=== PATIENT | female | born 1995 | race Caucasian/White ===

== ENCOUNTER 2023-12-25 10:50 | Outpatient (AMB) | payer OTHER, SELFPAY ==
--- NOTE | 2023-12-25 10:51 | MHC.OFFWIV ---
Intake Vital Signs 12/25/23 10:57 Height 5 ft 2 in Weight 250 lb BMI 45.7 BP 150/90 H Blood Pressure Location Lt brachial Position Sitting Pulse 96 Pulse Source Pulse Oximeter Temp 98.1 F Temp Source Temporal Artery Scan Pulse Oximetry (%) 99 Oxygen Delivery Method Room Air Intake Visit Reasons: SINGER AND UNLOADER ?UTI Intake Note: pt is here today for UTI started yesterday Patient Tobacco Use Status: Never used Tobacco Allergies No Known Allergies Allergy (Verified 12/25/23 10:59) Medication List - Last Reconciled 12/25/23 by Seth Callejas MD bupropion HCl XL 150 mg PO QAM naproxen 500 mg PO BID ondansetron HCl 4 mg PO DAILY semaglutide (weight loss) (Wegovy) mg subcut Do you need a note to return to daycare/school/sports/work: No HPI SINGER AND UNLOADER ?UTI HPI Details Patient is 28-year-old female came in today to be evaluated for possible bladder infection Patient says that symptoms started mid day yesterday with feeling of pressure suprapubic and frequency of urination Patient says that she has had UTI in the past and she can tell when it is coming on There is no fever no chills no back pain no nausea no vomiting She is traveling tomorrow to [place] I am treating her with nitrofurantoin 100 mg b.i.d. for 5 days Patient was instructed to push fluids. UA shows positive leuk esterase without any blood Patient is aware of elevated blood pressure, she tells me that it fluctuates and she is working on her blood pressure with the primary care. PFSH Social History Patient Tobacco Use Status: Never used Tobacco Review of Systems Const All systems reviewed & are unremarkable except as noted in HPI and below Physical Exam Vital Signs: Last Vital Signs Temp 98.1 F 12/25/23 10:57 Pulse 96 12/25/23 10:57 BP 150/90 H 12/25/23 10:57 Pulse Ox 99 12/25/23 10:57 Oxygen Delivery Method Room Air 12/25/23 10:57 BMI result Body Mass Index 45.7 Const General: no acute distress Orientation/consciousness: patient oriented x3 Eyes General: appearance normal, both eyes and all related structures Resp Effort & Inspection: normal respiratory effort and able to speak in complete sentences GI Other: Mild suprapubic discomfort with pressure General: Yes no CVA tenderness Back/Spine/Pelvis Back: no CVA tenderness Neuro General: patient oriented x3 Psych Mental Status: mental status grossly normal Results AMB Urinalysis, Automated UA Leukoctes 15 Mone/uL Last Edit by ALYSE Mccarty on 12/25/23 11:10 UA Nitrite Negative Last Edit by ALYSE Mccarty on 12/25/23 11:10 UA Urobilinogen 0.2 mg/dL Last Edit by ALYSE Mccarty on 12/25/23 11:10 UA Protein 15 mg/dL Last Edit by Adarsh Yee CCM on 12/25/23 11:10 UA pH 6.0 Last Edit by ALYSE Mccarty on 12/25/23 11:10 UA Blood 0 Carlito/uL Last Edit by ALYSE Mccarty on 12/25/23 11:10 UA Specific [place] 1.020 Last Edit by ALYSE Mccarty on 12/25/23 11:10 UA Ketone Positive Last Edit by ALYSE Mccarty on 12/25/23 11:10 UA Bilirubin 0 mg/dL Last Edit by ALYSE Mccarty on 12/25/23 11:10 UA Glucose 0 mg/dL Last Edit by ALYSE Mccarty on 12/25/23 11:10 Assessment & Plan Assessment & Plan (1) Acute cystitis without hematuria: Code(s): N30.00 - Acute cystitis without hematuria Plan Patient is 28-year-old female came in today to be evaluated for possible bladder infection Patient says that symptoms started mid day yesterday with feeling of pressure suprapubic and frequency of urination Patient says that she has had UTI in the past and she can tell when it is coming on There is no fever no chills no back pain no nausea no vomiting She is traveling tomorrow to [place] I am treating her with nitrofurantoin 100 mg b.i.d. for 5 days Patient was instructed to push fluids. UA shows positive leuk esterase without any blood Patient is aware of elevated blood pressure, she tells me that it fluctuates and she is working on her blood pressure with the primary care. Coding Level of Care Code New Pt Level 3 (01285) Diagnoses Acute cystitis without hematuria N30.00
[2023-12-25 10:57] VITALS: BP 150/90; PULSE 96; TEMP 36.7; O2SAT 99; BMI 45.7
== END 2023-12-25 11:50 | disposition home or self-care (01) ==
PROVIDERS: PCP Nurse Practitioner Family; Visit Provider Internal Medicine
DX: N30.00 Acute cystitis without hematuria (principal)
CPT/HCPCS: 81003; 99203

== ENCOUNTER 2025-01-27 07:34 | Outpatient (AMB) | payer OTHER, SELFPAY ==
[2025-01-27 07:34] VITALS: BP 145/98; PULSE 74; TEMP 36.2; O2SAT 98; BMI 47.3
--- NOTE | 2025-01-27 07:34 | AM.OFFWIN_ITS ---
Intake Vital Signs 01/27/25 07:34 Height 5 ft 2 in Weight 258 lb 6 oz BMI 47.3 BP 145/98 H Blood Pressure Location Lt brachial Position Sitting Pulse 74 Pulse Source Pulse Oximeter Temp 97.1 F Temp Source Oral Pulse Oximetry (%) 98 Oxygen Delivery Method Room Air Intake Visit Reasons: EP ? UTI Intake Note: Patient presents with urinary frequency and urgency times 2 days Patient Tobacco Use Status: Never used Tobacco [employer] Required: No Is last menstrual period known: Yes Last menstrual period: 01/25/25 Post menopausal: No Patient : No Allergies No Known Allergies Allergy (Verified 01/27/25 07:40) Do you need a note to return to daycare/school/sports/work: Yes HPI HPI Comments History of Present Illness Details History - The patient is a 29-year-old female pr esenting with urinary tract infection symptoms. - Symptoms began yesterday morning, incl uding frequent urination and slight discomfort. - No fever, low back pain, or history of kidney stones reported. - Slight burning sensation noted during urination. - Patient is currently menstruating with an IUD, making it difficult to assess for hematuria. Physical Exam General: Cooperative, healthy appearing, comfortable, no acute distress and well developed Orientation: Patient oriented x3 Limitations: No limitations Head: Normal to inspection Ears: Hearing grossly normal bilaterally Face and sinus: Normal facial exam Neck: Normal visual inspection and Yes full ROM Respiratory: Normal respiratory effort and able to speak in complete sentences. Skin: No rashes or lesions noted Neuro: Patient oriented x3 [facility] Social History Patient Tobacco Use Status: Never used Tobacco Patient : No Female Reproductive History Menstrual Date of last menstrual period: 01/25/25 Review of Systems Const All systems reviewed & are unremarkable except as noted in HPI and below Physical Exam Vital Signs: Last Vital Signs Temp 97.1 F 01/27/25 07:34 Pulse 74 01/27/25 07:34 BP 145/98 H 01/27/25 07:34 Pulse Ox 98 01/27/25 07:34 Oxygen Delivery Method Room Air 01/27/25 07:34 BMI result Body Mass Index 47.3 Assessment & Plan Assessment & Plan (1) Symptomatic urinary tract infection: Code(s): N39.0 - Urinary tract infection, site not specified Plan: Plan Patient was informed and verbally consented to the use of an ambient scribe for clinic note documentation during this visit. 1. Urinary Tract Infection (Uti) Symptoms - Prescribed Cefuroxime 250 mg every 12 hours for five days. - Urine culture ordered to confirm infection and ensure appropriate antibiotic coverage. - Patient advised to provide a urine sample at the lab for culture as she was unable to provide a sample while in the office. Orders: Orders Urine Culture Today N39.0 - Urinary tract infection, site not specified UA w Microscopic Today N39.0 - Urinary tract infection, site not specified Medications: New cefuroxime axetil 500 mg PO Q12H 10 tabs 0RF Coding Level of Care Code New Pt Level 3 (08923) Diagnoses Symptomatic urinary tract infection N39.0
--- OUTSIDE RECORDS SUMMARY | 2025-01-27 07:35 | XMS_ITS ---
Author Name [facility] Organization Unknown Care Team Organization Name Specialty Phone Email Start Date End Da te [facility] Milady Gonzalez DO Primary Care 11/12/202202/05
--- OUTSIDE RECORDS SUMMARY | 2025-01-27 07:35 | XMS_ITS | Patient Health Record ---
Author Organization [facility] Address [address] [place] [address] Care Team Providers Care [employer] Installer Name Role Phone KARYN MERT Unavailable [phone] Allergies No Known Allergies Reason For Referral No Information Medications Medication SIG (Take, Route, Fr equency, Duration) Notes Start Date End Date Status FLUoxetine HCl 10 MG TAKE 1 TABLET BY MO UTH EVERY DAY Oral; Duration: 30 Days Acti ve Probiotic 250 MG as directed Orally Active Problems Problem Type SNOMED Code ICD Code Onset Dates Problem Status W/U Status Risk Notes Problem Prediabetes (332106088) Prediabetes (R73.03) Active confirmed Problem Anxiety (23146213) Anxiety (F41.9) Active confirmed Problem Body mass index 40+ - severely obese (049668804) BMI 45.0-49.9, adult (Z68.42) Active confirmed Problem Screening for cardiovascular system disease (129430240) Screening for cardiovascular condition (Z13.6) Active confirmed Problem Morbid obesity (943056777) Obesity, Class III, BMI 40-49.9 (morbid obesity) (E66.01) Active confirmed Problem Obesity (650315152) Obesity (E66.9) Active confirmed Vital Signs Heart Rate 80 /min 12/21/2024 Oximetry 99 % 12/21/2024 Blood pressure diastolic 86 mm Hg 12/21/2024 Height 61 in 12/21/2024 Blood pressure systolic 134 mm Hg 12/21/2024 Weight 259.4 lbs 12/21/2024 BMI 49.01 kg/m2 12/21/2024 Encounters Encounter Location Date Provider Diagnosis [facility] [address] [place] [address] 04/23/2024 MERT BOSS BMI 45.0-49.9, adult Z68.42 ; Obesity, Class III, BMI 40-49.9 (morbid obesity) E66.01 and Prediabetes R73.[address] [facility] [address] [place], [place] 08/04/2024 MERT BOSS BMI 45.0-49.9, adult Z68.42 ; Obesity, Class III, BMI 40-49.9 (morbid obesity) E66.01 and Prediabetes R73.[address] [facility] [address] [place], [place] 12/21/2024 MERT BOSS BMI 45.0-49.9, adult Z68.42 ; Obesity, Class III, BMI 40-49.9 (morbid obesity) E66.01 ; Prediabetes R73.03 and Encounter for examination of blood pressure without abnormal findings Z01.[address] [facility] [address] [place] [address] 04/22/2024 MERT BOSS [facility] [address] [address] 08/04/2024 MERT BOSS [facility] [address] [address] 08/11/2024 MERT BOSS Obesity, Class III, BMI 40-49.9 (morbid obesity) E66.01 [facility] [address] [address] 08/12/2024 MERT BOSS Obesity, Class III, BMI 40-49.9 (morbid obesity) E66.[address] [facility] [address] [place], [place] 08/13/2024 MERT BOSS [facility] [address] [place], [place] 08/19/2024 MERT BOSS [facility] [address] [place], [place] 06/01/2024 MERT BOSS [facility] [address] [place], [place] 06/01/2024 MERT BOSS [facility] [address] [place], [place] 06/10/2024 MERT BOSS [facility] [address] [place] [address] 06/10/2024 MERT FARMERNER [facility] [address] [facility] [place], [place] [address] 07/14/20[address] MERT [address]OSS [facility] [address] [facility] [place] [address] 07/14/2024 MERT KARYN [facility] [address] [place] [place], [place] [address] 09/28/2024 MERT FARMERNER [facility] [address] [facility] [place] [address] 09/28/2024 MERT BOSS Assessments Encounter Date Diagnosis (ICD Code) Assessment Notes Treatment Notes Treatment Clinical Notes Section Notes 04/23/2024 BMI 45.0-49.9, adult (ICD-10 - Z68.42) #Weight management 09/18/23: Patient established weight management care here in the beginning of June and was prescribed phentermine. Patient reports she did not start the medication and wanted to try lifestyle modifications instead. Has made some lifestyle changes such as increasing her step, eliminated alcohol and restaurant eating, as well as increasing protein intake. Discussed with patient to promote weight loss she needs to be eating less than 1400 calories a day, eating a well balanced diet of protein, vegetables, fruits, whole grains and eliminating things like pasta, white bread and rice. Discussed eliminating sugar and alcohol while trying to lose weight. For activity, advised patient to increase steps with a goal of 10,000 steps, at least 5 days a week. Plan to continue lifestyle modifications as described above in addition to prescribing a low dose of phentermine 15 mg tab PO once daily for the next month. Discussed phentermine works by causing appetite supression. Plan to take phentermine until next follow up in 1 month to monitor weight loss. 10/16/23: 10/16/23: Weight 255.3, BMI 48.23. Patient congratulated on effort, continue to lose slow, steady weight. Taking phentermine 30 mg with compliance, no side effects. Just had a refill has been taking x 1 week. Exercising resistance training 2 times per week, cardio 3 times per week. Pleased progress overall. May consider switching over to GLP-1, patient is getting at the end of the year, just waiting starting in January so we will plan accordingly. 11/20/2023: Weight 254.4, BMI 48.06. Patient has plateaued since last visit. Taking phentermine 30 mg. Will discontinue medication as she is not noticing much effect, switch over to semaglutide. Start semaglutide 0.25 mg in office, but submit for Wegovy 2.5 mg. Discussed prior authorization process, and coverage. Patient understanding. Continue exercising , And focusing on high-protein. 12/18/2023: Weight 251.4, BMI 47.5. Patient congratulated on effort. Body scan reveals 1 pound of fat mass loss, 2 pounds of fat free mass loss, and muscle mass remaining the same. Patient states her nutrition fluctuates and the weekends are especially difficult to make healthy food choices. Reports noticing a little appetite suppression on the Wegovy 0.25mg and reports mild nausea. Patient is interested in increasing dose to Wegovy 0.5mg. Patient will receive semaglutide 0.5mg in office today and patient will continue on Wegovy 0.5mg at home if able to fill rx.. Patient will f/u in 4 weeks. 01/22/2024: Weight 249, BMI 47.1. Patient congratulated and effort, losing slow, steady weight. Taking Wegovy 0.5 mg but will increase to 1 mg. Just joint [employer] tracks, to implement more consistent resistance training. Body scan reviewed overall unchanged from last visit. Patient is motivated.Continue with Wegovy 1 mg, follow-up in March. 04/23/2024: Weight 239, BMI 45.19. Patient congratulated on effort. Extensively educated on lifestyle modifications. Has been walking more, but plans implement more resistance training. Just got , congratulated. Is going to [place] next week for her honeymoon. Insurance is switching as of May 08. Will send refill of Wegovy 1 mg, but will have to submit a new prior authorization with new insurance which is [employer]. She is aware I cannot guarantee coverage of medication. # Being worked up for uterine fibroids with ELECTROTHERAPIST. Getting an IUD in place. Time spent with patient 30 minutes greater than 50% on patient occasion and care coronation. Follow-up in 6 weeks, sooner as needed. All quetsions answered to patients satisfaction. Patient verbalized understanding of diagnosis and treatments explained. To call sooner prior to next visit it any questions/concerns arise. Case discussed with collaborating physician Lizz Mejia who reviewed the assessment and plan. Chart, medications, labs, vital signs reviewed. Dictation was accomplished with the use of [employer] voice recognition software, prone to medical misidentifications and grammatical errors. This is unintentional and the practitioner does try to identify and correct these, but some could still be present. Please do not hesitate to contact practitioner for clarification. 08/04/2024 BMI 45.0-49.9, adult (ICD-10 - Z68.42) #Weight management 09/18/23: Patient established weight management care here in the beginning of June and was prescribed phentermine. Patient reports she did not start the medication and wanted to try lifestyle modifications instead. Has made some lifestyle changes such as increasing her step, eliminated alcohol and restaurant eating, as well as increasing protein intake. Discussed with patient to promote weight loss she needs to be eating less than 1400 calories a day, eating a well balanced diet of protein, vegetables, fruits, whole grains and eliminating things like pasta, white bread and rice. Discussed eliminating sugar and alcohol while trying to lose weight. For activity, advised patient to increase steps with a goal of 10,000 steps, at least 5 days a week. Plan to continue lifestyle modifications as described above in addition to prescribing a low dose of phentermine 15 mg tab PO once daily for the next month. Discussed phentermine works by causing appetite supression. Plan to take phentermine until next follow up in 1 month to monitor weight loss. 10/16/23: 10/16/23: Weight 255.3, BMI 48.23. Patient congratulated on effort, continue to lose slow, steady weight. Taking phentermine 30 mg with compliance, no side effects. Just had a refill has been taking x 1 week. Exercising resistance training 2 times per week, cardio 3 times per week. Pleased progress overall. May consider switching over to GLP-1, patient is getting at the end of the year, just waiting starting in January so we will plan accordingly. 11/20/2023: Weight 254.4, BMI 48.06. Patient has plateaued since last visit. Taking phentermine 30 mg. Will discontinue medication as she is not noticing much effect, switch over to semaglutide. Start semaglutide 0.25 mg in office, but submit for Wegovy 2.5 mg. Discussed prior authorization process, and coverage. Patient understanding. Continue exercising , And focusing on high-protein. 12/18/2023: Weight 251.4, BMI 47.5. Patient congratulated on effort. Body scan reveals 1 pound of fat mass loss, 2 pounds of fat free mass loss, and muscle mass remaining the same. Patient states her nutrition fluctuates and the weekends are especially difficult to make healthy food choices. Reports noticing a little appetite suppression on the Wegovy 0.25mg and reports mild nausea. Patient is interested in increasing dose to Wegovy 0.5mg. Patient will receive semaglutide 0.5mg in office today and patient will continue on Wegovy 0.5mg at home if able to fill rx.. Patient will f/u in 4 weeks. 01/22/2024: Weight 249, BMI 47.1. Patient congratulated and effort, losing slow, steady weight. Taking Wegovy 0.5 mg but will increase to 1 mg. Just [employer] tracks, to implement more consistent resistance training. Body scan reviewed overall unchanged from last visit. Patient is motivated.Continue with Wegovy 1 mg, follow-up in March. 04/23/2024: Weight 239, BMI 45.19. Patient congratulated on effort. Extensively educated on lifestyle modifications. Has been walking more, but plans implement more resistance training. Just got , congratulated. Is going to [place] next week for her honeymoon. Insurance is switching as of May 08. Will send refill of Wegovy 1 mg, but will have to submit a new prior authorization with new insurance which is [employer]. She is aware I cannot guarantee coverage of medication. 08/04/2024: Weight 251, BMI 47. Patient has gained weight since last visit. Stopped Wegovy because she was having a difficult time with focusing on work and has not been on any medication since May. Interested in reestablishing and reinitiating medication. Discussed Wegovy versus Zepbound, patient would prefer to trial Wegovy. Will start 0.25 mg, discussed proper use and side effects. Did discuss the importance of lifestyle modifications in conjunction with weight loss medications. Patient does have a goal of next year, is aware she cannot be on any weight loss medications while . # Being worked up for uterine fibroids with ELECTROTHERAPIST. Getting an IUD in place. # Anxiety: Following with her PCP, trying to establish with therapy/psychiatry. Time spent with patient 30 minutes greater than 50% on patient occasion and care coronation. Follow-up in 4 weeks, sooner as needed. All quetsions answered to patients satisfaction. Patient verbalized understanding of diagnosis and treatments explained. To call sooner prior to next visit it any questions/concerns arise. Case discussed with collaborating physician Lizz Mejia who reviewed the assessment and plan. Chart, medications, labs, vital signs reviewed. Dictation was accomplished with the use of [employer] voice recognition software, prone to medical misidentifications and grammatical errors. This is unintentional and the practitioner does try to identify and correct these, but some could still be present. Please do not hesitate to contact practitioner for clarification. 08/11/2024 Obesity, Class III, BMI 40-49.9 (morbid obesity) (ICD-10 - E66.01) 08/12/2024 Obesity, Class III, BMI 40-49.9 (morbid obesity) (ICD-10 - E66.01) 12/21/2024 BMI 45.0-49.9, adult (ICD-10 - Z68.42) #Weight management 09/18/23: Patient established weight management care here in the beginning of June and was prescribed phentermine. Patient reports she did not start the medication and wanted to try lifestyle modifications instead. Has made some lifestyle changes such as increasing her step, eliminated alcohol and restaurant eating, as well as increasing protein intake. Discussed with patient to promote weight loss she needs to be eating less than 1400 calories a day, eating a well balanced diet of protein, vegetables, fruits, whole grains and eliminating things like pasta, white bread and rice. Discussed eliminating sugar and alcohol while trying to lose weight. For activity, advised patient to increase steps with a goal of 10,000 steps, at least 5 days a week. Plan to continue lifestyle modifications as described above in addition to prescribing a low dose of phentermine 15 mg tab PO once daily for the next month. Discussed phentermine works by causing appetite supression. Plan to take phentermine until next follow up in 1 month to monitor weight loss. 10/16/23: 10/16/23: Weight 255.3, BMI 48.23. Patient congratulated on effort, continue to lose slow, steady weight. Taking phentermine 30 mg with compliance, no side effects. Just had a refill has been taking x 1 week. Exercising resistance training 2 times per week, cardio 3 times per week. Pleased progress overall. May consider switching over to GLP-1, patient is getting at the end of the year, just waiting starting in January so we will plan accordingly. 11/20/2023: Weight 254.4, BMI 48.06. Patient has plateaued since last visit. Taking phentermine 30 mg. Will discontinue medication as she is not noticing much effect, switch over to semaglutide. Start semaglutide 0.25 mg in office, but submit for Wegovy 2.5 mg. Discussed prior authorization process, and coverage. Patient understanding. Continue exercising , And focusing on high-protein. 12/18/2023: Weight 251.4, BMI 47.5. Patient congratulated on effort. Body scan reveals 1 pound of fat mass loss, 2 pounds of fat free mass loss, and muscle mass remaining the same. Patient states her nutrition fluctuates and the weekends are especially difficult to make healthy food choices. Reports noticing a little appetite suppression on the Wegovy 0.25mg and reports mild nausea. Patient is interested in increasing dose to Wegovy 0.5mg. Patient will receive semaglutide 0.5mg in office today and patient will continue on Wegovy 0.5mg at home if able to fill rx.. Patient will f/u in 4 weeks. 01/22/2024: Weight 249, BMI 47.1. Patient congratulated and effort, losing slow, steady weight. Taking Wegovy 0.5 mg but will increase to 1 mg. Just joint [employer] tracks, to implement more consistent resistance training. Body scan reviewed overall unchanged from last visit. Patient is motivated.Continue with Wegovy 1 mg, follow-up in March. 04/23/2024: Weight 239, BMI 45.19. Patient congratulated on effort. Extensively educated on lifestyle modifications. Has been walking more, but plans implement more resistance training. Just got , congratulated. Is going to [place] next week for her honeymoon. Insurance is switching as of May 08. Will send refill of Wegovy 1 mg, but will have to submit a new prior authorization with new insurance which is [employer]. She is aware I cannot guarantee coverage of medication. 08/04/2024: Weight 251, BMI 47. Patient has gained weight since last visit. Stopped Wegovy because she was having a difficult time with focusing on work and has not been on any medication since May. Interested in reestablishing and reinitiating medication. Discussed Wegovy versus Zepbound, patient would prefer to trial Wegovy. Will start 0.25 mg, discussed proper use and side effects. Did discuss the importance of lifestyle modifications in conjunction with weight loss medications. Patient does have a goal of next year, is aware she cannot be on any weight loss medications while . 12/21/2024: Weight 259, BMI 49. Patient was hoping to reinitiate Wegovy in office, although discussed that we do not offer compounded options in office anymore. Did discuss other alternative options such as compounded tirzepatide, [id number] Wegovy, or Zepbound. Patient's insurance does cover the medication she does has a $1300 cost monthly. She states that she is going to go home and discuss with her . Wants to look into HERS. Will follow-up in 4 weeks. # Being worked up for uterine fibroids with ELECTROTHERAPIST. Getting an IUD in place. # Anxiety:On fluoxetine 10 mg, feeling well 9 prediabetes: A1c 5.13 Nov 2024. Discussed lifestyle, will benefit from weight loss GLP-1, does not qualify for diabetic GLP-1. # Elevated liver enzymes: Discussed lifestyle Time spent with patient 30 minutes greater than 50% on patient occasion and care coronation. Follow-up in 4 weeks, sooner as needed. All quetsions answered to patients satisfaction. Patient verbalized understanding of diagnosis and treatments explained. To call sooner prior to next visit it any questions/concerns arise. Case discussed with collaborating physician Lizz Mejia who reviewed the assessment and plan. Chart, medications, labs, vital signs reviewed. Dictation was accomplished with the use of [employer] voice recognition software, prone to medical misidentifications and grammatical errors. This is unintentional and the practitioner does try to identify and correct these, but some could still be present. Please do not hesitate to contact practitioner for clarification. 12/21/2024 Obesity, Class III, BMI 40-49.9 (morbid obesity) (ICD-10 - E66.01) #Weight management 09/18/23: Patient established weight management care here in the beginning of June and was prescribed phentermine. Patient reports she did not start the medication and wanted to try lifestyle modifications instead. Has made some lifestyle changes such as increasing her step, eliminated alcohol and restaurant eating, as well as increasing protein intake. Discussed with patient to promote weight loss she needs to be eating less than 1400 calories a day, eating a well balanced diet of protein, vegetables, fruits, whole grains and eliminating things like pasta, white bread and rice. Discussed eliminating sugar and alcohol while trying to lose weight. For activity, advised patient to increase steps with a goal of 10,000 steps, at least 5 days a week. Plan to continue lifestyle modifications as described above in addition to prescribing a low dose of phentermine 15 mg tab PO once daily for the next month. Discussed phentermine works by causing appetite supression. Plan to take phentermine until next follow up in 1 month to monitor weight loss. 10/16/23: 10/16/23: Weight 255.3, BMI 48.23. Patient congratulated on effort, continue to lose slow, steady weight. Taking phentermine 30 mg with compliance, no side effects. Just had a refill has been taking x 1 week. Exercising resistance training 2 times per week, cardio 3 times per week. Pleased progress overall. May consider switching over to GLP-1, patient is getting at the end of the year, just waiting starting in January so we will plan accordingly. 11/20/2023: Weight 254.4, BMI 48.06. Patient has plateaued since last visit. Taking phentermine 30 mg. Will discontinue medication as she is not noticing much effect, switch over to semaglutide. Start semaglutide 0.25 mg in office, but submit for Wegovy 2.5 mg. Discussed prior authorization process, and coverage. Patient understanding. Continue exercising , And focusing on high-protein. 12/18/2023: Weight 251.4, BMI 47.5. Patient congratulated on effort. Body scan reveals 1 pound of fat mass loss, 2 pounds of fat free mass loss, and muscle mass remaining the same. Patient states her nutrition fluctuates and the weekends are especially difficult to make healthy food choices. Reports noticing a little appetite suppression on the Wegovy 0.25mg and reports mild nausea. Patient is interested in increasing dose to Wegovy 0.5mg. Patient will receive semaglutide 0.5mg in office today and patient will continue on Wegovy 0.5mg at home if able to fill rx.. Patient will f/u in 4 weeks. 01/22/2024: Weight 249, BMI 47.1. Patient congratulated and effort, losing slow, steady weight. Taking Wegovy 0.5 mg but will increase to 1 mg. Just joint [employer] tracks, to implement more consistent resistance training. Body scan reviewed overall unchanged from last visit. Patient is motivated.Continue with Wegovy 1 mg, follow-up in March. 04/23/2024: Weight 239, BMI 45.19. Patient congratulated on effort. Extensively educated on lifestyle modifications. Has been walking more, but plans implement more resistance training. Just got , congratulated. Is going to [place] next week for her honeymoon. Insurance is switching as of May 08. Will send refill of Wegovy 1 mg, but will have to submit a new prior authorization with new insurance which is [employer]. She is aware I cannot guarantee coverage of medication. 08/04/2024: Weight 251, BMI 47. Patient has gained weight since last visit. Stopped Wegovy because she was having a difficult time with focusing on work and has not been on any medication since May. Interested in reestablishing and reinitiating medication. Discussed Wegovy versus Zepbound, patient would prefer to trial Wegovy. Will start 0.25 mg, discussed proper use and side effects. Did discuss the importance of lifestyle modifications in conjunction with weight loss medications. Patient does have a goal of next year, is aware she cannot be on any weight loss medications while . 12/21/2024: Weight 259, BMI 49. Patient was hoping to reinitiate Wegovy in office, although discussed that we do not offer compounded options in office anymore. Did discuss other alternative options such as compounded tirzepatide, [id number]-uh-bloraa Wegovy, or Zepbound. Patient's insurance does cover the medication she does has a $1300 cost monthly. She states that she is going to go home and discuss with her . Wants to look into HERS. Will follow-up in 4 weeks. # Being worked up for uterine fibroids with ELECTROTHERAPIST. Getting an IUD in place. # Anxiety:On fluoxetine 10 mg, feeling well 9 prediabetes: A1c 5.13 Nov 2024. Discussed lifestyle, will benefit from weight loss GLP-1, does not qualify for diabetic GLP-1. # Elevated liver enzymes: Discussed lifestyle Time spent with patient 30 minutes greater than 50% on patient occasion and care coronation. Follow-up in 4 weeks, sooner as needed. All quetsions answered to patients satisfaction. Patient verbalized understanding of diagnosis and treatments explained. To call sooner prior to next visit it any questions/concerns arise. Case discussed with collaborating physician Lizz Mejia who reviewed the assessment and plan. Chart, medications, labs, vital signs reviewed. Dictation was accomplished with the use of [employer] voice recognition software, prone to medical misidentifications and grammatical errors. This is unintentional and the practitioner does try to identify and correct these, but some could still be present. Please do not hesitate to contact practitioner for clarification. 12/21/2024 Prediabetes (ICD-10 - R73.03) #Weight management 09/18/23: Patient established weight management care here in the beginning of June and was prescribed phentermine. Patient reports she did not start the medication and wanted to try lifestyle modifications instead. Has made some lifestyle changes such as increasing her step, eliminated alcohol and restaurant eating, as well as increasing protein intake. Discussed with patient to promote weight loss she needs to be eating less than 1400 calories a day, eating a well balanced diet of protein, vegetables, fruits, whole grains and eliminating things like pasta, white bread and rice. Discussed eliminating sugar and alcohol while trying to lose weight. For activity, advised patient to increase steps with a goal of 10,000 steps, at least 5 days a week. Plan to continue lifestyle modifications as described above in addition to prescribing a low dose of phentermine 15 mg tab PO once daily for the next month. Discussed phentermine works by causing appetite supression. Plan to take phentermine until next follow up in 1 month to monitor weight loss. 10/16/23: 10/16/23: Weight 255.3, BMI 48.23. Patient congratulated on effort, continue to lose slow, steady weight. Taking phentermine 30 mg with compliance, no side effects. Just had a refill has been taking x 1 week. Exercising resistance training 2 times per week, cardio 3 times per week. Pleased progress overall. May consider switching over to GLP-1, patient is getting at the end of the year, just waiting starting in January so we will plan accordingly. 11/20/2023: Weight 254.4, BMI 48.06. Patient has plateaued since last visit. Taking phentermine 30 mg. Will discontinue medication as she is not noticing much effect, switch over to semaglutide. Start semaglutide 0.25 mg in office, but submit for Wegovy 2.5 mg. Discussed prior authorization process, and coverage. Patient understanding. Continue exercising , And focusing on high-protein. 12/18/2023: Weight 251.4, BMI 47.5. Patient congratulated on effort. Body scan reveals 1 pound of fat mass loss, 2 pounds of fat free mass loss, and muscle mass remaining the same. Patient states her nutrition fluctuates and the weekends are especially difficult to make healthy food choices. Reports noticing a little appetite suppression on the Wegovy 0.25mg and reports mild nausea. Patient is interested in increasing dose to Wegovy 0.5mg. Patient will receive semaglutide 0.5mg in office today and patient will continue on Wegovy 0.5mg at home if able to fill rx.. Patient will f/u in 4 weeks. 01/22/2024: Weight 249, BMI 47.1. Patient congratulated and effort, losing slow, steady weight. Taking Wegovy 0.5 mg but will increase to 1 mg. Just joint health tracks, to implement more consistent resistance training. Body scan reviewed overall unchanged from last visit. Patient is motivated.Continue with Wegovy 1 mg, follow-up in March. 04/23/2024: Weight 239, BMI 45.19. Patient congratulated on effort. Extensively educated on lifestyle modifications. Has been walking more, but plans implement more resistance training. Just got , congratulated. Is going to [place] next week for her honeymoon. Insurance is switching as of May 08. Will send refill of Wegovy 1 mg, but will have to submit a new prior authorization with new insurance which is [employer]. She is aware I cannot guarantee coverage of medication. 08/04/2024: Weight 251, BMI 47. Patient has gained weight since last visit. Stopped Wegovy because she was having a difficult time with focusing on work and has not been on any medication since May. Interested in reestablishing and reinitiating medication. Discussed Wegovy versus Zepbound, patient would prefer to trial Wegovy. Will start 0.25 mg, discussed proper use and side effects. Did discuss the importance of lifestyle modifications in conjunction with weight loss medications. Patient does have a goal of next year, is aware she cannot be on any weight loss medications while . 12/21/2024: Weight 259, BMI 49. Patient was hoping to reinitiate Wegovy in office, although discussed that we do not offer compounded options in office anymore. Did discuss other alternative options such as compounded tirzepatide, [id number] Wegovy, or Zepbound. Patient's insurance does cover the medication she does has a $1300 cost monthly. She states that she is going to go home and discuss with her . Wants to look into HERS. Will follow-up in 4 weeks. # Being worked up for uterine fibroids with ELECTROTHERAPIST. Getting an IUD in place. # Anxiety:On fluoxetine 10 mg, feeling well 9 prediabetes: A1c 5.13 Nov 2024. Discussed lifestyle, will benefit from weight loss GLP-1, does not qualify for diabetic GLP-1. # Elevated liver enzymes: Discussed lifestyle Time spent with patient 30 minutes greater than 50% on patient occasion and care coronation. Follow-up in 4 weeks, sooner as needed. All quetsions answered to patients satisfaction. Patient verbalized understanding of diagnosis and treatments explained. To call sooner prior to next visit it any questions/concerns arise. Case discussed with collaborating physician Lizz Mejia who reviewed the assessment and plan. Chart, medications, labs, vital signs reviewed. Dictation was accomplished with the use of [employer] voice recognition software, prone to medical misidentifications and grammatical errors. This is unintentional and the practitioner does try to identify and correct these, but some could still be present. Please do not hesitate to contact practitioner for clarification. 08/04/2024 Obesity, Class III, BMI 40-49.9 (morbid obesity) (ICD-10 - E66.01) #Weight management 09/18/23: Patient established weight management care here in the beginning of June and was prescribed phentermine. Patient reports she did not start the medication and wanted to try lifestyle modifications instead. Has made some lifestyle changes such as increasing her step, eliminated alcohol and restaurant eating, as well as increasing protein intake. Discussed with patient to promote weight loss she needs to be eating less than 1400 calories a day, eating a well balanced diet of protein, vegetables, fruits, whole grains and eliminating things like pasta, white bread and rice. Discussed eliminating sugar and alcohol while trying to lose weight. For activity, advised patient to increase steps with a goal of 10,000 steps, at least 5 days a week. Plan to continue lifestyle modifications as described above in addition to prescribing a low dose of phentermine 15 mg tab PO once daily for the next month. Discussed phentermine works by causing appetite supression. Plan to take phentermine until next follow up in 1 month to monitor weight loss. 10/16/23: 10/16/23: Weight 255.3, BMI 48.23. Patient congratulated on effort, continue to lose slow, steady weight. Taking phentermine 30 mg with compliance, no side effects. Just had a refill has been taking x 1 week. Exercising resistance training 2 times per week, cardio 3 times per week. Pleased progress overall. May consider switching over to GLP-1, patient is getting at the end of the year, just waiting starting in January so we will plan accordingly. 11/20/2023: Weight 254.4, BMI 48.06. Patient has plateaued since last visit. Taking phentermine 30 mg. Will discontinue medication as she is not noticing much effect, switch over to semaglutide. Start semaglutide 0.25 mg in office, but submit for Wegovy 2.5 mg. Discussed prior authorization process, and coverage. Patient understanding. Continue exercising , And focusing on high-protein. 12/18/2023: Weight 251.4, BMI 47.5. Patient congratulated on effort. Body scan reveals 1 pound of fat mass loss, 2 pounds of fat free mass loss, and muscle mass remaining the same. Patient states her nutrition fluctuates and the weekends are especially difficult to make healthy food choices. Reports noticing a little appetite suppression on the Wegovy 0.25mg and reports mild nausea. Patient is interested in increasing dose to Wegovy 0.5mg. Patient will receive semaglutide 0.5mg in office today and patient will continue on Wegovy 0.5mg at home if able to fill rx.. Patient will f/u in 4 weeks. 01/22/2024: Weight 249, BMI 47.1. Patient congratulated and effort, losing slow, steady weight. Taking Wegovy 0.5 mg but will increase to 1 mg. Just joint [employer] tracks, to implement more consistent resistance training. Body scan reviewed overall unchanged from last visit. Patient is motivated.Continue with Wegovy 1 mg, follow-up in March. 04/23/2024: Weight 239, BMI 45.19. Patient congratulated on effort. Extensively educated on lifestyle modifications. Has been walking more, but plans implement more resistance training. Just got , congratulated. Is going to [place] next week for her honeymoon. Insurance is switching as of May 08. Will send refill of Wegovy 1 mg, but will have to submit a new prior authorization with new insurance which is [employer]. She is aware I cannot guarantee coverage of medication. 08/04/2024: Weight 251, BMI 47. Patient has gained weight since last visit. Stopped Wegovy because she was having a difficult time with focusing on work and has not been on any medication since May. Interested in reestablishing and reinitiating medication. Discussed Wegovy versus Zepbound, patient would prefer to trial Wegovy. Will start 0.25 mg, discussed proper use and side effects. Did discuss the importance of lifestyle modifications in conjunction with weight loss medications. Patient does have a goal of next year, is aware she cannot be on any weight loss medications while . # Being worked up for uterine fibroids with ELECTROTHERAPIST. Getting an IUD in place. # Anxiety: Following with her PCP, trying to establish with therapy/psychiatry. Time spent with patient 30 minutes greater than 50% on patient occasion and care coronation. Follow-up in 4 weeks, sooner as needed. All quetsions answered to patients satisfaction. Patient verbalized understanding of diagnosis and treatments explained. To call sooner prior to next visit it any questions/concerns arise. Case discussed with collaborating physician Lizz Mejia who reviewed the assessment and plan. Chart, medications, labs, vital signs reviewed. Dictation was accomplished with the use of [employer] voice recognition software, prone to medical misidentifications and grammatical errors. This is unintentional and the practitioner does try to identify and correct these, but some could still be present. Please do not hesitate to contact practitioner for clarification. 04/23/2024 Obesity, Class III, BMI 40-49.9 (morbid obesity) (ICD-10 - E66.01) #Weight management 09/18/23: Patient established weight management care here in the beginning of June and was prescribed phentermine. Patient reports she did not start the medication and wanted to try lifestyle modifications instead. Has made some lifestyle changes such as increasing her step, eliminated alcohol and restaurant eating, as well as increasing protein intake. Discussed with patient to promote weight loss she needs to be eating less than 1400 calories a day, eating a well balanced diet of protein, vegetables, fruits, whole grains and eliminating things like pasta, white bread and rice. Discussed eliminating sugar and alcohol while trying to lose weight. For activity, advised patient to increase steps with a goal of 10,000 steps, at least 5 days a week. Plan to continue lifestyle modifications as described above in addition to prescribing a low dose of phentermine 15 mg tab PO once daily for the next month. Discussed phentermine works by causing appetite supression. Plan to take phentermine until next follow up in 1 month to monitor weight loss. 10/16/23: 10/16/23: Weight 255.3, BMI 48.23. Patient congratulated on effort, continue to lose slow, steady weight. Taking phentermine 30 mg with compliance, no side effects. Just had a refill has been taking x 1 week. Exercising resistance training 2 times per week, cardio 3 times per week. Pleased progress overall. May consider switching over to GLP-1, patient is getting at the end of the year, just waiting starting in January so we will plan accordingly. 11/20/2023: Weight 254.4, BMI 48.06. Patient has plateaued since last visit. Taking phentermine 30 mg. Will discontinue medication as she is not noticing much effect, switch over to semaglutide. Start semaglutide 0.25 mg in office, but submit for Wegovy 2.5 mg. Discussed prior authorization process, and coverage. Patient understanding. Continue exercising , And focusing on high-protein. 12/18/2023: Weight 251.4, BMI 47.5. Patient congratulated on effort. Body scan reveals 1 pound of fat mass loss, 2 pounds of fat free mass loss, and muscle mass remaining the same. Patient states her nutrition fluctuates and the weekends are especially difficult to make healthy food choices. Reports noticing a little appetite suppression on the Wegovy 0.25mg and reports mild nausea. Patient is interested in increasing dose to Wegovy 0.5mg. Patient will receive semaglutide 0.5mg in office today and patient will continue on Wegovy 0.5mg at home if able to fill rx.. Patient will f/u in 4 weeks. 01/22/2024: Weight 249, BMI 47.1. Patient congratulated and effort, losing slow, steady weight. Taking Wegovy 0.5 mg but will increase to 1 mg. Just joint [employer] tracks, to implement more consistent resistance training. Body scan reviewed overall unchanged from last visit. Patient is motivated.Continue with Wegovy 1 mg, follow-up in March. 04/23/2024: Weight 239, BMI 45.19. Patient congratulated on effort. Extensively educated on lifestyle modifications. Has been walking more, but plans implement more resistance training. Just got , congratulated. Is going to [place] next week for her honeymoon. Insurance is switching as of May 08. Will send refill of Wegovy 1 mg, but will have to submit a new prior authorization with new insurance which is [employer]. She is aware I cannot guarantee coverage of medication. # Being worked up for uterine fibroids with ELECTROTHERAPIST. Getting an IUD in place. Time spent with patient 30 minutes greater than 50% on patient occasion and care coronation. Follow-up in 6 weeks, sooner as needed. All quetsions answered to patients satisfaction. Patient verbalized understanding of diagnosis and treatments explained. To call sooner prior to next visit it any questions/concerns arise. Case discussed with collaborating physician Lizz Mejia who reviewed the assessment and plan. Chart, medications, labs, vital signs reviewed. Dictation was accomplished with the use of [employer] voice recognition software, prone to medical misidentifications and grammatical errors. This is unintentional and the practitioner does try to identify and correct these, but some could still be present. Please do not hesitate to contact practitioner for clarification. 08/04/2024 Prediabetes (ICD-10 - R73.03) #Weight management 09/18/23: Patient established weight management care here in the beginning of June and was prescribed phentermine. Patient reports she did not start the medication and wanted to try lifestyle modifications instead. Has made some lifestyle changes such as increasing her step, eliminated alcohol and restaurant eating, as well as increasing protein intake. Discussed with patient to promote weight loss she needs to be eating less than 1400 calories a day, eating a well balanced diet of protein, vegetables, fruits, whole grains and eliminating things like pasta, white bread and rice. Discussed eliminating sugar and alcohol while trying to lose weight. For activity, advised patient to increase steps with a goal of 10,000 steps, at least 5 days a week. Plan to continue lifestyle modifications as described above in addition to prescribing a low dose of phentermine 15 mg tab PO once daily for the next month. Discussed phentermine works by causing appetite supression. Plan to take phentermine until next follow up in 1 month to monitor weight loss. 10/16/23: 10/16/23: Weight 255.3, BMI 48.23. Patient congratulated on effort, continue to lose slow, steady weight. Taking phentermine 30 mg with compliance, no side effects. Just had a refill has been taking x 1 week. Exercising resistance training 2 times per week, cardio 3 times per week. Pleased progress overall. May consider switching over to GLP-1, patient is getting at the end of the year, just waiting starting in January so we will plan accordingly. 11/20/2023: Weight 254.4, BMI 48.06. Patient has plateaued since last visit. Taking phentermine 30 mg. Will discontinue medication as she is not noticing much effect, switch over to semaglutide. Start semaglutide 0.25 mg in office, but submit for Wegovy 2.5 mg. Discussed prior authorization process, and coverage. Patient understanding. Continue exercising , And focusing on high-protein. 12/18/2023: Weight 251.4, BMI 47.5. Patient congratulated on effort. Body scan reveals 1 pound of fat mass loss, 2 pounds of fat free mass loss, and muscle mass remaining the same. Patient states her nutrition fluctuates and the weekends are especially difficult to make healthy food choices. Reports noticing a little appetite suppression on the Wegovy 0.25mg and reports mild nausea. Patient is interested in increasing dose to Wegovy 0.5mg. Patient will receive semaglutide 0.5mg in office today and patient will continue on Wegovy 0.5mg at home if able to fill rx.. Patient will f/u in 4 weeks. 01/22/2024: Weight 249, BMI 47.1. Patient congratulated and effort, losing slow, steady weight. Taking Wegovy 0.5 mg but will increase to 1 mg. Just joint [employer] tracks, to implement more consistent resistance training. Body scan reviewed overall unchanged from last visit. Patient is motivated.Continue with Wegovy 1 mg, follow-up in March. 04/23/2024: Weight 239, BMI 45.19. Patient congratulated on effort. Extensively educated on lifestyle modifications. Has been walking more, but plans implement more resistance training. Just got , congratulated. Is going to [place] next week for her honeymoon. Insurance is switching as of May 08. Will send refill of Wegovy 1 mg, but will have to submit a new prior authorization with new insurance which is [employer]. She is aware I cannot guarantee coverage of medication. 08/04/2024: Weight 251, BMI 47. Patient has gained weight since last visit. Stopped Wegovy because she was having a difficult time with focusing on work and has not been on any medication since May. Interested in reestablishing and reinitiating medication. Discussed Wegovy versus Zepbound, patient would prefer to trial Wegovy. Will start 0.25 mg, discussed proper use and side effects. Did discuss the importance of lifestyle modifications in conjunction with weight loss medications. Patient does have a goal of next year, is aware she cannot be on any weight loss medications while . # Being worked up for uterine fibroids with ELECTROTHERAPIST. Getting an IUD in place. # Anxiety: Following with her PCP, trying to establish with therapy/psychiatry. Time spent with patient 30 minutes greater than 50% on patient occasion and care coronation. Follow-up in 4 weeks, sooner as needed. All quetsions answered to patients satisfaction. Patient verbalized understanding of diagnosis and treatments explained. To call sooner prior to next visit it any questions/concerns arise. Case discussed with collaborating physician Lizz Mejia who reviewed the assessment and plan. Chart, medications, labs, vital signs reviewed. Dictation was accomplished with the use of [employer] voice recognition software, prone to medical misidentifications and grammatical errors. This is unintentional and the practitioner does try to identify and correct these, but some could still be present. Please do not hesitate to contact practitioner for clarification. 04/23/2024 Prediabetes (ICD-10 - R73.03) #Weight management 09/18/23: Patient established weight management care here in the beginning of June and was prescribed phentermine. Patient reports she did not start the medication and wanted to try lifestyle modifications instead. Has made some lifestyle changes such as increasing her step, eliminated alcohol and restaurant eating, as well as increasing protein intake. Discussed with patient to promote weight loss she needs to be eating less than 1400 calories a day, eating a well balanced diet of protein, vegetables, fruits, whole grains and eliminating things like pasta, white bread and rice. Discussed eliminating sugar and alcohol while trying to lose weight. For activity, advised patient to increase steps with a goal of 10,000 steps, at least 5 days a week. Plan to continue lifestyle modifications as described above in addition to prescribing a low dose of phentermine 15 mg tab PO once daily for the next month. Discussed phentermine works by causing appetite supression. Plan to take phentermine until next follow up in 1 month to monitor weight loss. 10/16/23: 10/16/23: Weight 255.3, BMI 48.23. Patient congratulated on effort, continue to lose slow, steady weight. Taking phentermine 30 mg with compliance, no side effects. Just had a refill has been taking x 1 week. Exercising resistance training 2 times per week, cardio 3 times per week. Pleased progress overall. May consider switching over to GLP-1, patient is getting at the end of the year, just waiting starting in January so we will plan accordingly. 11/20/2023: Weight 254.4, BMI 48.06. Patient has plateaued since last visit. Taking phentermine 30 mg. Will discontinue medication as she is not noticing much effect, switch over to semaglutide. Start semaglutide 0.25 mg in office, but submit for Wegovy 2.5 mg. Discussed prior authorization process, and coverage. Patient understanding. Continue exercising , And focusing on high-protein. 12/18/2023: Weight 251.4, BMI 47.5. Patient congratulated on effort. Body scan reveals 1 pound of fat mass loss, 2 pounds of fat free mass loss, and muscle mass remaining the same. Patient states her nutrition fluctuates and the weekends are especially difficult to make healthy food choices. Reports noticing a little appetite suppression on the Wegovy 0.25mg and reports mild nausea. Patient is interested in increasing dose to Wegovy 0.5mg. Patient will receive semaglutide 0.5mg in office today and patient will continue on Wegovy 0.5mg at home if able to fill rx.. Patient will f/u in 4 weeks. 01/22/2024: Weight 249, BMI 47.1. Patient congratulated and effort, losing slow, steady weight. Taking Wegovy 0.5 mg but will increase to 1 mg. Just joint [employer] tracks, to implement more consistent resistance training. Body scan reviewed overall unchanged from last visit. Patient is motivated.Continue with Wegovy 1 mg, follow-up in March. 04/23/2024: Weight 239, BMI 45.19. Patient congratulated on effort. Extensively educated on lifestyle modifications. Has been walking more, but plans implement more resistance training. Just got , congratulated. Is going to [place] next week for her honeymoon. Insurance is switching as of May 08. Will send refill of Wegovy 1 mg, but will have to submit a new prior authorization with new insurance which is [employer]. She is aware I cannot guarantee coverage of medication. # Being worked up for uterine fibroids with ELECTROTHERAPIST. Getting an IUD in place. Time spent with patient 30 minutes greater than 50% on patient occasion and care coronation. Follow-up in 6 weeks, sooner as needed. All quetsions answered to patients satisfaction. Patient verbalized understanding of diagnosis and treatments explained. To call sooner prior to next visit it any questions/concerns arise. Case discussed with collaborating physician Lizz Mejia who reviewed the assessment and plan. Chart, medications, labs, vital signs reviewed. Dictation was accomplished with the use of [employer] voice recognition software, prone to medical misidentifications and grammatical errors. This is unintentional and the practitioner does try to identify and correct these, but some could still be present. Please do not hesitate to contact practitioner for clarification. 12/21/2024 Encounter for examination of blood pressure without abnormal findings (ICD-10 - Z01.30) #Weight management 09/18/23: Patient established weight management care here in the beginning of June and was prescribed phentermine. Patient reports she did not start the medication and wanted to try lifestyle modifications instead. Has made some lifestyle changes such as increasing her step, eliminated alcohol and restaurant eating, as well as increasing protein intake. Discussed with patient to promote weight loss she needs to be eating less than 1400 calories a day, eating a well balanced diet of protein, vegetables, fruits, whole grains and eliminating things like pasta, white bread and rice. Discussed eliminating sugar and alcohol while trying to lose weight. For activity, advised patient to increase steps with a goal of 10,000 steps, at least 5 days a week. Plan to continue lifestyle modifications as described above in addition to prescribing a low dose of phentermine 15 mg tab PO once daily for the next month. Discussed phentermine works by causing appetite supression. Plan to take phentermine until next follow up in 1 month to monitor weight loss. 10/16/23: 10/16/23: Weight 255.3, BMI 48.23. Patient congratulated on effort, continue to lose slow, steady weight. Taking phentermine 30 mg with compliance, no side effects. Just had a refill has been taking x 1 week. Exercising resistance training 2 times per week, cardio 3 times per week. Pleased progress overall. May consider switching over to GLP-1, patient is getting at the end of the year, just waiting starting in January so we will plan accordingly. 11/20/2023: Weight 254.4, BMI 48.06. Patient has plateaued since last visit. Taking phentermine 30 mg. Will discontinue medication as she is not noticing much effect, switch over to semaglutide. Start semaglutide 0.25 mg in office, but submit for Wegovy 2.5 mg. Discussed prior authorization process, and coverage. Patient understanding. Continue exercising , And focusing on high-protein. 12/18/2023: Weight 251.4, BMI 47.5. Patient congratulated on effort. Body scan reveals 1 pound of fat mass loss, 2 pounds of fat free mass loss, and muscle mass remaining the same. Patient states her nutrition fluctuates and the weekends are especially difficult to make healthy food choices. Reports noticing a little appetite suppression on the Wegovy 0.25mg and reports mild nausea. Patient is interested in increasing dose to Wegovy 0.5mg. Patient will receive semaglutide 0.5mg in office today and patient will continue on Wegovy 0.5mg at home if able to fill rx.. Patient will f/u in 4 weeks. 01/22/2024: Weight 249, BMI 47.1. Patient congratulated and effort, losing slow, steady weight. Taking Wegovy 0.5 mg but will increase to 1 mg. Just joint [employer] tracks, to implement more consistent resistance training. Body scan reviewed overall unchanged from last visit. Patient is motivated.Continue with Wegovy 1 mg, follow-up in March. 04/23/2024: Weight 239, BMI 45.19. Patient congratulated on effort. Extensively educated on lifestyle modifications. Has been walking more, but plans implement more resistance training. Just got , congratulated. Is going to [place] next week for her honeymoon. Insurance is switching as of May 08. Will send refill of Wegovy 1 mg, but will have to submit a new prior authorization with new insurance which is [employer]. She is aware I cannot guarantee coverage of medication. 08/04/2024: Weight 251, BMI 47. Patient has gained weight since last visit. Stopped Wegovy because she was having a difficult time with focusing on work and has not been on any medication since May. Interested in reestablishing and reinitiating medication. Discussed Wegovy versus Zepbound, patient would prefer to trial Wegovy. Will start 0.25 mg, discussed proper use and side effects. Did discuss the importance of lifestyle modifications in conjunction with weight loss medications. Patient does have a goal of next year, is aware she cannot be on any weight loss medications while . 12/21/2024: Weight 259, BMI 49. Patient was hoping to reinitiate Wegovy in office, although discussed that we do not offer compounded options in office anymore. Did discuss other alternative options such as compounded tirzepatide, nwq-de-jrsafe Wegovy, or Zepbound. Patient's insurance does cover the medication she does has a $1300 cost monthly. She states that she is going to go home and discuss with her . Wants to look into HERS. Will follow-up in 4 weeks. # Being worked up for uterine fibroids with ELECTROTHER[facility]IST. Getting an IUD in place. # Anxiety:On fluoxetine 10 mg, feeling well 9 prediabetes: A1c 5.13 Nov 2024. Discussed lifestyle, will benefit from weight loss GLP-1, does not qualify for diabetic GLP-1. # Elevated liver enzymes: Discussed lifestyle Time spent with patient 30 minutes greater than 50% on patient occasion and care coronation. Follow-up in 4 weeks, sooner as needed. All quetsions answered to patients satisfaction. Patient verbalized understanding of diagnosis and treatments explained. To call sooner prior to next visit it any questions/concerns arise. Case discussed with collaborating physician Lizz Mejia who reviewed the assessment and plan. Chart, medications, labs, vital signs reviewed. Dictation was accomplished with the use of [employer] voice recognition software, prone to medical misidentifications and grammatical errors. This is unintentional and the practitioner does try to identify and correct these, but some could still be present. Please do not hesitate to contact practitioner for clarification. Plan Of Treatment Next Appt Details Provider Name:MERT BOSS, 02/24/2025 10:45:00 AM, [address], [place], [id number], Insurance Providers Payer Name Payer Address Payer Phone Subscriber Number Group Number Insured Name Patient Relationship to Insured Coverage Start Date Coverage End Date [facility] [address] [place] [address] [id number] Corina Weller Self - patient is the insured Medications Administered Medication Instructions Date of Administration Dosage Notes Semaglutide 11/20/2023 .25 mg Semaglutide 12/18/2023 .5 mg Medical (General) History Medical History History ICD Code Obesity E66.9 Depression F32.A Anxiety F41.9 Fibroids D21.9 Elevated liver enzymes R74.8 Prediabetes R73.03
== END 2025-01-27 08:26 | disposition home or self-care (01) ==
PROVIDERS: PCP Nurse Practitioner Family; Visit Provider Physician Assistant
DX: N39.0 Urinary tract infection, site not specified (principal)

== ENCOUNTER 2025-01-27 07:34 | Outpatient (REF) | payer OTHER, SELFPAY ==
[2025-01-27 10:15] LABS: Appearance Urine Clear; Glucose Urine UA Negative (Negative); PH 6.0 (5.0-9.0); Specific Gravity - Urine <= 1.005 (1.005-1.025); UMIC TRIGGER UA YES
== END 2025-01-27 07:35 | disposition home or self-care (01) ==
LOC: HO.HMGCLDS 07:34
PROVIDERS: PCP Nurse Practitioner Family; Visit Provider Physician Assistant
DX: N39.0 Urinary tract infection, site not specified (principal)
CPT/HCPCS: 81001; 87086